=== PATIENT | born 2000 | race Caucasian/White ===

== ENCOUNTER 2023-05-23 14:28 | Outpatient (AMB) | payer BC, SELFPAY ==
--- NOTE | 2023-05-23 15:01 | MHC.OFFWIV ---
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 Intake Note: pt is here today for cough congestion for 2 weeks Allergies mushrooms Allergy (Mild, Uncoded 05/23/23 15:24) Difficulty Breathing Medication List - Last Reconciled 05/23/23 by Dorene Guo PA-C No Known Home Meds Do you need a note to return to daycare/school/sports/work: No HPI HPI Comments History of Present Illness Details Strted in throt 2 weeks ago Persistent sore throat but turned into thick congestion Ongoing throat and lungs Phlegm from nose is thick No fever or chills Face without pressure; + hx of migraine No fever or chills No ear pain Main complaint is persistent cough; brings up mucu No SOB or CP now but some SOB with coughing fit No body aches Review of Systems Const Denies chills, Denies fatigue and Denies fever(s) Eyes Denies blurry vision ENT Denies nasal discharge, Denies nasal obstruction, Denies sinus pressure, Reports sore throat and Denies throat swelling Card Denies chest pain and Denies dyspnea Resp Reports cough and Denies dyspnea Musc Denies back pain and Denies myalgias Endo Denies fatigue Aller/Immun Denies throat swelling Physical Exam Vital Signs: Last Vital Signs Temp 96.5 F 05/23/23 15:03 Pulse 81 05/23/23 15:03 BP 118/72 05/23/23 15:03 Pulse Ox 97 05/23/23 15:03 Oxygen Delivery Method Room Air 05/23/23 15:03 BMI result Body Mass Index 39.4 General: Non-toxic, NAD. Speaking full sentences. Skin: Warm dry throughout Eye: EOMI HENT: Airway patent. Uvula midline. No pharyngeal erythema or edema. 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 Bilateral canals clear. TM non-erythematous, non-bulging. No TM perforation or hemotympanum noted. Respiratory: Faint wheeze without rhonchi or crackles Cardiac: RRR. No murmur MSK: Full ROM extremities. Neurology: A/O. No aphasia or facial droop. Gait without abnormality Psych: Good mood and affect Assessment & Plan Assessment & Plan (1) Wheeze: Code(s): R06.2 - Wheezing Plan: No rales or concern PNA No respiratory distress (2) Upper respiratory disease: Code(s): J39.9 - Disease of upper respiratory tract, unspecified Plan: Symptomatic management. Tessalon for cough Prednisone with food; avoid ibuprofen F/U with PCP Call with concern ER is worse Expressed verbal understanding and all questions answered Medications: New benzonatate 100 mg PO BID-TID PRN 14 caps 0RF cough J39.9 - Disease of upper respiratory tract, unspecified prednisone 40 mg (2 x 20 mg) PO DAILY 4 days 8 tabs 0RF J39.9 - Disease of upper respiratory tract, unspecified, R06.2 - Wheezing Coding Level of Care Code Est Pt Level 3 (48406) Diagnoses Wheeze R06.2 Upper respiratory disease J39.9
[2023-05-23 15:03] VITALS: BP 118/72; PULSE 81; TEMP 35.8; O2SAT 97; BMI 39.4
== END 2023-05-23 15:29 | disposition home or self-care (01) ==
PROVIDERS: Visit Provider Physician Assistant
DX: R06.2 Wheezing (principal); J39.9 Disease of upper respiratory tract, unspecified
CPT/HCPCS: 99213